=== PATIENT | male | born 1990 | race Caucasian/White ===

== ENCOUNTER 2025-09-28 15:30 | Emergency (ER) | payer MEDICAID, SELFPAY ==
--- NOTE | 2025-09-28 15:36 | XR_ITS ---
Examination: Clavicle 2 views, right Technique: Clavicle AP, angled up AP, 2 views Exam date and time: September 28, 2025, 1547 hours INDICATIONS: Patient fell today with injury to the shoulder, shoulder pain FINDINGS: AC joint separation 17 mm No clavicle fracture IMPRESSION: 17 mm AC joint separation
--- NOTE | 2025-09-28 15:36 | XR_ITS ---
Examination: Shoulder, right, 3 views Technique: Shoulder AP internal rotation, AP external rotation, Y view shoulder, 3 views Exam date and time : September 28, 2025, 1549 hours INDICATIONS: Patient fell today with injury to the shoulder, shoulder pain. FINDINGS: 17 mm AC joint separation No fracture or shoulder dislocation Scapula humerus clavicles appear intact IMPRESSION: 17 mm AC joint separation
[2025-09-28 15:38] VITALS: BP 135/92; PULSE 90; RESP 18; TEMP 37; O2SAT 99; BMI 27.5
--- NOTE | 2025-09-28 17:36 | EDNOTE_ITS ---
ED Fall Injury RME/HPI General Chief Complaint: Fall Stated Complaint: R SHOULDER PAIN S/P INJURY Time Seen by Provider: 09/28/25 15:33 Source: patient Arrival date/time: 09/28/25 15:30 34-year-old male with no known medical history presents to the emergency room with a chief complaint of tenderness and pain to his right shoulder after flipping over a golf cart Mode of arrival: ambulatory Limitations: no limitations Related Data Previous Rx's ?Medication ?Instructions ?Recorded ibuprofen 800 mg tablet 800 mg PO Q8H #30 tabs 09/28 Allergies Allergy/AdvReac Type Severity Reaction Status Date / Time latex Allergy Unknown Verified 09/28/25 15:30 Review of Systems Review of Systems Systems Reviewed: All systems reviewed, normal except as documented Constitutional Constitutional: Reports system reviewed and no additional complaints, except as documented, Denies fatigue, Denies fever(s), Denies headache(s) and Denies weakness Eyes Eyes: Reports system reviewed and no additional complaints, except as documented, Denies blurry vision and Denies change in vision ENT Ears, Nose, Mouth, and Throat: Reports system reviewed and no additional complaints, except as documented, Denies otalgia, Denies headache(s), Denies nasal congestion, Denies throat swelling and Denies vertigo Cardiovascular Cardiovascular: Reports system reviewed and no additional complaints, except as documented, Denies chest pain, Denies dyspnea and Denies dyspnea on exertion Respiratory Respiratory: Reports system reviewed and no additional complaints, except as documented, Denies chest congestion, Denies cough, Denies dyspnea, Denies dyspnea on exertion and Denies wheezing Gastrointestinal Gastrointestinal: Reports system reviewed and no additional complaints, except as documented, Denies abdominal pain, Denies cramping, Denies nausea and Denies vomiting Genitourinary Genitourinary: Reports system reviewed and no additional complaints, except as documented, Denies dysuria and Denies hematuria Musculoskeletal Musculoskeletal: Reports system reviewed and no additional complaints, except as documented, Denies back pain, Reports joint swelling and Reports limited range of motion Integumentary/Breasts Skin/Breast: Reports system reviewed and no additional complaints, except as documented and Denies wounds Neurologic Neurologic: Reports system reviewed and no additional complaints, except as documented, Denies confusion, Denies headache(s), Denies lack of coordination, Denies vertigo and Denies weakness Psychiatric Psychiatric: Reports system reviewed and no additional complaints, except as documented, Denies anxiety, Denies confusion, Denies depression, Denies paranoia, Denies suicidal ideation and Denies tactile hallucinations Endocrine Endocrine: Reports system reviewed and no additional complaints, except as documented and Denies fatigue Hematologic/Lymphatic Hematologic/Lymphatic: Reports system reviewed and no additional complaints, except as documented and Denies lymphadenopathy Allergic/Immunologic Allergic/Immunologic: Reports system reviewed and no additional complaints, except as documented, Denies throat swelling, Denies urticaria and Denies wheezing Past Medical History Social History SMOKING STATUS: Never smoker ED Exam General Limitations: Present no limitations General appearance: Present alert and in no apparent distress Head Head exam: Present atraumatic Eye Eye exam: Present normal appearance, PERRL and EOMI ENT ENT exam: Present normal exam, normal oropharynx and mucous membranes moist Neck Neck exam: Present normal inspection, full ROM and trachea midline Chest Chest inspection: Present normal inspection and symmetric chest wall rise Respiratory Respiratory exam: Present normal lung sounds bilaterally Cardiovascular Cardiovascular exam: Present regular rate, normal rhythm and normal heart sounds Abdominal Exam Abdominal exam: Present soft and normal bowel sounds Extremities Exam Extremities exam: Present normal inspection and full ROM Expanded Upper Extremity Exam Shoulder exam: Present tenderness, swelling and tenderness over AC joint; Absent full ROM Arm exam: Present normal inspection Elbow exam: Present normal inspection Forearm/Wrist exam: Present normal inspection Hand exam: Present normal inspection Vascular exam: Normal capillary refill Back Exam Back exam: Present normal inspection and full ROM Neurological Exam Neurological exam: Present alert, oriented X3 and CN II-XII intact Psychiatric Psychiatric exam: Present normal affect and normal mood Skin Skin exam: Present warm, dry, intact and normal color Course Quality Measures none Orders Category Date Time Status sling [Splint / Immobilizer] STAT Care 09/28/25 15:37 Completed XR clavicle RT Stat Exams 09/28/25 15:36 Completed XR shoulder RT min 2V Stat Exams 09/28/25 15:36 Completed Vital Signs Vital signs: Vital Signs Temperature 98.6 F 09/28/25 15:38 Pulse Rate 90 09/28/25 15:38 Respiratory Rate 18 09/28/25 15:38 Blood Pressure 135/92 H 09/28/25 15:38 Pulse Oximetry (%) 99 09/28/25 15:38 Oxygen Delivery Method Room Air 12/07/25 15:38 Fall MDM Narrative MDM Narrative:: 34-year-old male with no known medical history presents to the emergency room with a chief complaint of tenderness and pain to his right shoulder after flipping over a golf cart Patient is hemodynamically stable and in no apparent distress Physical examination shows tenderness and pain to the patient's right shoulder. The patient has limited range of motion and is unable to lift his arm above his head. X-ray of the shoulder was completed and was negative for any acute fracture or dislocation. There is some AC joint separation. The patient was given a sling. Patient was educated to follow-up with his primary care provider for further management and to assess for any ligament damage Patient was discharged and educated to follow-up with primary care provider in the next 24 to 48 hours and return to the emergency room for any evidence of worsening signs or symptoms Patient data External records reviewed:: [facility] previous records Clinical information provided by:: patient Social determinants that could affect healthcare access:: none Patient has the following chronic illnesses:: No chronic illness How is presenting disease/condition affected by chronic disease/condition?: no chronic disease Evaluation data The following diagnostics were reviewed and interpreted by me:: lab results and radiology exam(s) Lab and/or radiology exams considered but not ordered:: Labs and radiology exams considered and ordered Interpretation Summary: X-ray shoulder-no acute fracture or dislocation Medications / Prescriptions Medications or Prescriptions considered but not ordered:: No medication given Medication administrations:: No medication given Consultations Consultation(s) initiated? (list below): No Diagnosis Fall Differential Diagnosis: dislocation of shoulder region and other (Shoulder fracture/shoulder sprain) Most likely diagnosis given after review of the tests above:: Shoulder sprain Admission Indicated Admission indicated?: not indicated Admission Request Was there a request for admission?: No Disposition Plan Disposition Plan: Discharge Discharge Attestation Discharge Attestation: The patient and all family members were given an opportunity to ask questions and understood the discharge instructions. Discharge instructions specifically effects, indications for sooner follow up or return to the emergency department, and the expected course of current diagnosis. Patient condition: Stable Discharge Plan Plan Patient Disposition: HOME (Self Care) Discharge Disposition comment: Stable Prescriptions/Referrals Prescriptions/Med Rec: New ibuprofen 800 mg tablet 800 mg PO Q8H Qty: 30 0RF Referrals: No Primary/Family,Physician [Primary Care Provider] - In 1 week Problem List Clinical Impression: Acromioclavicular joint separation, Shoulder sprain Patient/Caregiver Discharge Instructions Education Materials: ED Joint Dislocation, ED Shoulder Sprain Additional Instructions: Please follow-up with your primary care provider in the next 24 to 48 hours X-rays of your shoulder and clavicle were negative for any acute fracture or dislocation. The x-ray did show some AC joint separation. You will need to follow-up with your primary care provider as a referral for an MRI to assess for any rotator cuff injury is indicated For any evidence of worsening signs or symptoms return to the emergency room immediately Print Language: [place] Stand Alone Forms: Jazmine Award Info., Work/School Release, Patient Portal Info Letter PA/TEACHER VOCAL Supervising Physician PA/COURTNEY Supervising Physician: Dr. Matthews
== END 2025-09-28 17:55 | disposition home or self-care (01) ==
PROVIDERS: Emergency Provider Emergency Medicine
DX: S43.51XA Sprain of right acromioclavicular joint, initial encounter (principal); V86.99XA Unspecified occupant of other special all-terrain or other off-road motor vehicle injured in nontraffic accident, initial encounter
CPT/HCPCS: 73000; 73030; 99282; A4565